=== PATIENT | male | born 1985 | race Caucasian/White ===

== ENCOUNTER 2018-11-30 22:26 | Emergency (ER) | payer OTHER ==
[~2018-11-30] VITALS: Ht 180.3 cm; Wt 104.5 kg
[2018-11-30 22:33] VITALS: BP 138/89; TEMP 97.5
[2018-12-01] MEDS ORDERED: CEPHALEXIN500 M1 PO (00:11)
[2018-12-01 00:27] VITALS: PULSE 72
== END 2018-12-01 00:27 | disposition home or self-care (01) ==
LOC: COL.ER 22:26
DX: S10.96XA Insect bite of unspecified part of neck, initial encounter (principal); D23.4 Other benign neoplasm of skin of scalp and neck; I88.9 Nonspecific lymphadenitis, unspecified; H57.89 Other specified disorders of eye and adnexa; Z87.891 Personal history of nicotine dependence; W57.XXXA Bitten or stung by nonvenomous insect and other nonvenomous arthropods, initial encounter

== ENCOUNTER 2019-06-07 19:51 | Emergency (ER) | payer OTHER ==
[~2019-06-07] VITALS: Ht 180.3 cm; Wt 103.6 kg
[~2019-06-07 19:51] MED LIST: CEPHALEXIN500 M1 PO
[2019-06-07 20:13] VITALS: TEMP 99.7
[2019-06-07 20:43] LABS: STREP SCREEN NEGATIVE
[2019-06-07] MEDS ORDERED: CLEOCIN HC150 MG/CAP PO (21:38)
[2019-06-07 22:06] VITALS: BP 157/85; PULSE 83
== END 2019-06-07 22:07 | disposition home or self-care (01) ==
LOC: COL.ER 19:51
PROVIDERS: Emergency Medicine
DX: J02.9 Acute pharyngitis, unspecified (principal)
CPT/HCPCS: J1100

== ENCOUNTER 2019-06-20 00:07 | Emergency (ER) | payer OTHER ==
[~2019-06-20] VITALS: Ht 180.3 cm; Wt 102.3 kg
[~2019-06-20 00:07] MED LIST changes: +CLEOCIN HC150 MG/CAP PO
[2019-06-20 01:57] VITALS: BP 160/90; PULSE 64; TEMP 98.1
== END 2019-06-20 01:58 | disposition home or self-care (01) ==
LOC: COL.ER 00:07
DX: S61.212A Laceration without foreign body of right middle finger without damage to nail, initial encounter (principal); Z87.891 Personal history of nicotine dependence; W26.8XXA Contact with other sharp object(s), not elsewhere classified, initial encounter; Y92.009 Unspecified place in unspecified non-institutional (private) residence as the place of occurrence of the external cause

== ENCOUNTER 2019-07-11 18:20 | Emergency (ER) | payer OTHER ==
[~2019-07-11] VITALS: Ht 180.3 cm; Wt 100.0 kg
[2019-07-11 18:25] VITALS: BP 139/79
[2019-07-11 19:07] LABS: BASO % 0.2 % (0.0-2.0); EOS % 0.5 % (0-4.0); GRAN # 5.4 (1.4-6.5); GRAN % 88.7 % (42.2-75.2); HEMATOCRIT 41.2 % (42.0-52.0); HEMOGLOBIN 14.2 g/dl (13.5-18.0); LYMPH # 0.2 (1.2-3.4); LYMPH % 3.6 % (20.0-51.0); MEAN CELL VOLUME 84 fl (80.0-100.0); MEAN CORPUSCULAR HEMOGLOBIN 29 pg (27.0-31.0); MEAN CORPUSCULAR HGB CONC 35 g/dl (33.0-37.0); MEAN PLATELET VOLUME 9.2 fl (7.4-10.4); MONO # 0.4 (0.1-0.6); MONO % 6.8 % (1.7-9.3); PLATELET COUNT 181 K/mm3 (130-400); RED BLOOD COUNT 4.91 M/mm3 (4.20-5.60); REDCELL DISTRIBUTION WIDTH-CV 11.9 % (11.5-14.5)
[2019-07-11 19:20] LABS: ALANINE AMINOTRANSFERASE 36 U/L (21-72); ALBUMIN 4.4 gm/dL (3.5-5.0); ALKALINE PHOSPHATASE 51 U/L (50-136); ANION GAP 9 mmol/L (7-16); AST,SGOT 30 U/L (15-37); BILIRUBIN,TOTAL 0.7 mg/dL (0.0-1.0); BLOOD UREA NITROGEN 16 mg/dL (9-20); CALCIUM 8.8 mg/dL (8.4-10.2); CARBON DIOXIDE 26 mmol/L (22-30); CHLORIDE 101 mmol/L (98-107); CREATININE, serum 0.83 (0.66-1.25); GLUCOSE 149 mg/dL (74-106); POTASSIUM 3.6 mmol/L (3.4-5.0); SODIUM 136 mmol/L (137-145); TOTAL PROTEIN 7.2 gm/dL (6.4-8.2)
[2019-07-11 19:21] LABS: C-REACTIVE PROTEIN < 0.5 mg/dL (0.0-0.9)
[2019-07-11] MEDS ORDERED: TAMIFLU 75MG75 MG PO (20:20)
[2019-07-11] MEDS ORDERED: DOXYCYCLINE 10100 MG PO (20:20)
[2019-07-11 20:34] VITALS: PULSE 94; TEMP 101.7
== END 2019-07-11 20:36 | disposition home or self-care (01) ==
LOC: COL.ER 18:20
PROVIDERS: Emergency Medicine
DX: J11.1 Influenza due to unidentified influenza virus with other respiratory manifestations (principal); Z87.891 Personal history of nicotine dependence
CPT/HCPCS: J7030

== ENCOUNTER 2019-07-13 19:15 | Emergency (ER) | payer OTHER ==
[~2019-07-13] VITALS: Ht 180.3 cm; Wt 100.0 kg
[~2019-07-13 19:15] MED LIST changes: +DOXYCYCLINE 10100 MG PO; +TAMIFLU 75MG75 MG PO
[2019-07-13 19:22] VITALS: BP 149/74; TEMP 98.9
[2019-07-13] MEDS ORDERED: ZOFRAN 4MG T4 MG/TAB PO (22:01)
[2019-07-13] MEDS ORDERED: MEDROL 4MG DOSPA4 MG PO (22:01)
[2019-07-13] MEDS ORDERED: TESSALON P100 MG/CAP PO (22:01)
[2019-07-13 22:50] VITALS: PULSE 81
== END 2019-07-13 23:01 | disposition home or self-care (01) ==
LOC: COL.ER 19:15
DX: J11.1 Influenza due to unidentified influenza virus with other respiratory manifestations (principal); Z87.891 Personal history of nicotine dependence
CPT/HCPCS: J1885